=== PATIENT | female | born 1985 | race Caucasian/White ===

== ENCOUNTER 2017-12-09 18:31 | Emergency (ER) | payer OTHER ==
[~2017-12-09] VITALS: Ht 157.5 cm; Wt 61.4 kg
[2017-12-09] MEDS ORDERED: PHENYLEPHRINE HCL 2.5% 2 ML OPHTHALMIC SOLUTION OD ONE (19:30)
[2017-12-09] MEDS ORDERED: TROPICAMIDE 1% 2 ML OPHTHALMIC SOLUTION OD ONE (20:00)
[2017-12-09 21:28] VITALS: BP 124/78
== END 2017-12-09 21:43 | disposition home or self-care (01) ==
LOC: EMS 18:33
DX: H33.21 Serous retinal detachment, right eye (principal); R51 Headache
CPT/HCPCS: 99283